=== PATIENT | female | born 1970 | race Caucasian/White ===

== ENCOUNTER → 2020-11-16 06:50 | Outpatient (CLI) | payer OTHER, SELFPAY ==
[2020-11-16 17:21] LABS: SARS-CoV-2 RNA PCR Negative
== END ==
PROVIDERS: PCP Emergency Medicine; Visit Provider Emergency Medicine
DX: Z20.822 Contact with and (suspected) exposure to COVID-19 (principal)
CPT/HCPCS: C9803; U0003; U0005